=== PATIENT | male | born 1990 | race Two or more races ===

== ENCOUNTER 2023-03-03 22:37 | Inpatient (IN) | payer OTHER ==
[~2023-03-03] VITALS: Ht 170.2 cm; Wt 103.4 kg
--- NOTE | 2023-03-03 22:45 | NUR ---
PACIENTE MASCULINO ALERTA Y ORIENTADO X3, REFIERE TENER LA PRESION ARTERIAL ELEVADA, SE SIENTE CON DOLOR DE RICH Y ÁNGELA.
[2023-03-03] MEDS ORDERED: IRBESARTAN300 MG (22:47)
[2023-03-03] MEDS ORDERED: NIFEDIPINE20 MG PO (22:47)
[2023-03-03] MEDS ORDERED: TOPROL XL25 M1 (22:47)
--- NOTE | 2023-03-04 00:09 | NUR ---
SE EDUCA A PTE SOBRE TX MEDICO VALE REFIERE ENTENDER, SE RAMIRO MUESTRAS DE LABORATORIO UTILIZANDO MEDIDAS ASEPITCAS. SE NICOLE CATAPRESS DE 0.1MG A PTE.
--- NOTE | 2023-03-04 02:06 | NUR ---
SE RECIBE PTE ALERTA Y ORIENTADO X 3 ESFERAS AMBULANDO,SIN DIFICULTAD RESP; PROCEDENTE DEL AREA DE FT,SE UBICA EN CAMA CON BARANDAS ELEVADAS,SE CONECTA A MONITOR CARDIACO Y OXIMETRIA,SE LE ORIENTA SOBRE TX MEDICO Y PROTOCOLO DE AREA.SE LE EXTRAEN MUESTRAS BAJO MEDIDAS ASEPTICAS,SE CANALIZA Y SE COLOCA DRIP DE TRIDIL @3ML/HR POR IVPUMP THIEN ORDEN MEDICA.SE MCKENNA BAJO OBSERVACION POR CAMBIOS.
--- NOTE | 2023-03-04 06:07 | NUR ---
SE LITTLE MUESTRA DE HUYEN THIEN ORDEN MEDICA Y BAJO MEDIDAS ASEPTICAS.
--- NOTE | 2023-03-04 07:41 | NUR ---
SE RECIBE PACIENTE ALERTAY ORIENTADA POR 3 EN CAMA #17 AREA DE CHEST PAIN. SE OFRECE JAEL PARA EVALUAR CONDICION. PACIENTE CON IVF'S PATENTE EN MANO DERECHA BAJANDO TRIDIL A 3 MLS/HR, AREA STEFAN DE EDEMA Y/O ERITEMA.CONECTADO A MONITOR CARDIACO CON SATUROMETRO. PACIENTE ORINANDO DE FORMA ESPONTANEA AL MOMENTO 500ML DE ORINA AMARILLO NANETTE. SE MIDEN Y DOCUMENTAN S/V. BARANDAS ELEVADAS POR ROCA SEGURIDAD. PENDIENTE CONSULTA CON DR DEE [place]. SE MONITOREA POR CAMBIOS SIGNIFICATIVOS.
[2023-03-05] MEDS ORDERED: METFORMIN HCL500 M4 (16:00)
[2023-03-05] MEDS ORDERED: IRBESARTAN-HCT1 EAC1 (16:00)
[2023-03-05] MEDS ORDERED: HYDROCHLOROTH12.5 MG (16:00)
[2023-03-08] MEDS ORDERED: LIPITOR40 MG PO (11:40)
[2023-03-08] MEDS ORDERED: CARVEDILOL6.25 MG PO (11:41)
[2023-03-08] MEDS ORDERED: AVAPRO300 MG PO (11:42)
[2023-03-08] MEDS ORDERED: PROCARDIA XL90 MG PO (11:43)
[2023-03-08] MEDS ORDERED: HYDROCHLOROTHIA25 MG PO (11:43)
[2023-03-08] MEDS ORDERED: SPIRONOLACTONE50 MG PO (11:43)
[2023-03-08] MEDS ORDERED: ST. JOSEPH ASPI81 M2 PO (11:43)
[2023-03-08] MEDS ORDERED: EFFER-K 20 MEQ20 MEQ PO (11:44)
[2023-03-08] MEDS ORDERED: HYDRALAZINE HCL25 MG PO (11:45)
== END 2023-03-08 13:46 | disposition home or self-care (01) | DRG 281 ==
LOC: ER 22:37 → ICU-2 03-04 12:01 → MEDJ 03-07 10:47
PROVIDERS: ADMIT Internal Medicine; ATTEND Internal Medicine
PROC: B24BYZZ Ultrasonography of Heart with Aorta using Other Contrast (ICD-10-PCS; principal; 2023-03-04)
PROC: BT4JZZZ Ultrasonography of Kidneys and Bladder (ICD-10-PCS; 2023-03-04)
PROC: BW21ZZZ Computerized Tomography (CT Scan) of Abdomen and Pelvis (ICD-10-PCS; 2023-03-04)
PROC: BW28ZZZ Computerized Tomography (CT Scan) of Head (ICD-10-PCS; 2023-03-04)
PROC: BW21YZZ Computerized Tomography (CT Scan) of Abdomen and Pelvis using Other Contrast (ICD-10-PCS; 2023-03-05)
DX: I24.9 Acute ischemic heart disease, unspecified (principal); I21.4 Non-ST elevation (NSTEMI) myocardial infarction; I16.9 Hypertensive crisis, unspecified; I10 Essential (primary) hypertension; E87.6 Hypokalemia; E66.9 Obesity, unspecified

== ENCOUNTER 2023-05-07 07:05 | Outpatient (CLI) | payer OTHER ==
[~2023-05-07 07:05] MED LIST: AVAPRO300 MG PO; CARVEDILOL6.25 MG PO; EFFER-K 20 MEQ20 MEQ PO; HYDRALAZINE HCL25 MG PO; HYDROCHLOROTH12.5 MG; HYDROCHLOROTHIA25 MG PO; IRBESARTAN-HCT1 EAC1; IRBESARTAN300 MG; LIPITOR40 MG PO; METFORMIN HCL500 M4; NIFEDIPINE20 MG PO; PROCARDIA XL90 MG PO; SPIRONOLACTONE50 MG PO; ST. JOSEPH ASPI81 M2 PO; TOPROL XL25 M1
== END 2023-05-07 07:13 | disposition home or self-care (01) ==
LOC: NUCLEAR 07:05
PROVIDERS: ATTEND Internal Medicine
DX: I10 Essential (primary) hypertension (principal); R07.9 Chest pain, unspecified